=== PATIENT | female | born 1965 | race African-American/Black ===

== ENCOUNTER 2017-01-25 13:47 | Outpatient (CLI) | payer OTHER ==
--- NOTE | 2017-01-25 15:03 | Ultrasound Report ---
TRANSABDOMINAL AND TRANSVAGINAL PELVIC ULTRASOUND: 01/25/17 13:47:00 CLINICAL: Excessive frequent menstruation with regular menstrual cycle. FINDINGS: Transabdominal and transvaginal pelvic ultrasound demonstrated a retroflexed fibroid uterus measuring 8.1 x 7.7 x 6.5 cm. A single measurable fibroid is located intramural in the posterior fundus and measures 2.3 x 2.1 x 1.7 cm. No other measurable fibroids.A normal proliferative endometrium measures 10 mm AP thickness. Normal right ovary with a 1.4 cm dominant follicle. The right ovary measures 2.2 x 1.2 x 2.0cm. Normal left ovary with a dominant 1.4 cm dominant follicle. The left ovary measures 1.9 x 1.3 x 1.4cm. No adnexal mass. No free fluid. Normal urinary bladder. IMPRESSION: 1. A minimally enlarged fibroid uterus. 2. Normal endometrium. 3. Normal ovaries.
--- NOTE | 2017-01-25 15:22 | Mammography Report ---
BILATERAL DIGITAL SCREENING MAMMOGRAM with CAD: 01/25/17 13:47:00 CLINICAL: Baseline screening. FINDINGS: The breasts are heterogeneously dense, which may obscures small masses. Left asymmetries require additional imaging.No architectural distortion or suspicious calcifications.The right breast is negative. IMPRESSION: Left asymmetries requiring further workup. BI-RADS CATEGORY: 0 -- Additional Imaging Evaluation Required RECOMMENDATION: Recall for left mediolateral , spot compression CC and MLO views and ultrasound if needed. ACR BI-RADS MAMMOGRAPHIC CODES: 0 = Needs additional imaging evaluation; 1 = Negative; 2 = Benign; 3 = Probably benign; 4 = Suspicious; 5 = Malignant; 6 = Known biopsy-proven malignancy COMMENT: 1. Dense breast tissue, i.e., adenosis, fibrocystic changes, etc., may obscure an underlying neoplasm. 2. Approximately 10% of cancers are not detected with mammography. 3. A negative mammography report should not delay biopsy if a clinically suspicious mass is present. COMMENT: Patient follow-up letters are generated via our [employer] application.
== END 2017-01-25 13:48 | disposition home or self-care (01) ==
LOC: SPVWC 13:47
PROVIDERS: ATTEND Family Medicine
DX: Z12.31 Encounter for screening mammogram for malignant neoplasm of breast (principal); D25.9 Leiomyoma of uterus, unspecified
CPT/HCPCS: 76830; 76856; G0202; 77067